=== PATIENT | female | born 1975 | race Two or more races ===

== ENCOUNTER 2019-10-17 08:30 | Inpatient (IN) | payer OTHER ==
[~2019-10-17] VITALS: Ht 157.5 cm; Wt 59.9 kg
== END 2019-11-02 11:25 | disposition home or self-care (01) | DRG 743 ==
LOC: O/R 10-31 06:45 → OB/GYN 10-31 06:45 → SURH 10-31 08:30 → OB/GYN 10-31 15:50
PROVIDERS: ADMIT Obstetrics & Gynecology; ATTEND Obstetrics & Gynecology
PROC: 0UT70ZZ Resection of Bilateral Fallopian Tubes, Open Approach (ICD-10-PCS; 2019-10-31)
PROC: 0UT90ZL Resection of Uterus, Supracervical, Open Approach (ICD-10-PCS; principal; 2019-10-31 08:30)
DX: D25.2 Subserosal leiomyoma of uterus (principal); N80.0 Endometriosis of uterus